=== PATIENT | female | born 1955 | race Asian ===

== ENCOUNTER 2020-07-26 09:09 | Emergency (ER) | payer SELFPAY ==
[~2020-07-26] VITALS: Ht 154.9 cm; Wt 59.9 kg
[2020-07-26 09:11] VITALS: Ht 154.9 cm; Wt 59.9 kg
[2020-07-26 12:01] VITALS: BP 161/85
== END 2020-07-26 12:01 | disposition home or self-care (01) ==
LOC: ED 09:09
DX: R11.2 Nausea with vomiting, unspecified (principal); R19.7 Diarrhea, unspecified; I10 Essential (primary) hypertension; R14.0 Abdominal distension (gaseous); M79.10 Myalgia, unspecified site